=== PATIENT | male | born 1970 ===

== ENCOUNTER 2025-06-24 06:21 | Day surgery (SDC) | payer OTHER ==
[2025-06-17 13:12] VITALS: BP 131/88
[~2025-06-24] VITALS: Ht 170.2 cm; Wt 59.0 kg
[2025-06-24] MEDS ORDERED: METRONIDAZOLE/SODIUM CHLORIDE 500 MG/100 ML PIGGYBACK IV ONE (08:43)
[2025-06-24] MEDS ORDERED: CEFTRIAXONE SODIUM 2,000 MG VIAL ONE (08:43)
[2025-06-24] MEDS ORDERED: LIDOCAINE HCL 1%/EPINEPHRINE 20ML VIAL IJ ONE (10:22)
[2025-06-24] MEDS ORDERED: HEMOSTATIC MATRIX 1 KIT KIT TOP ONE (10:22)
[2025-06-24] MEDS ORDERED: DIBUCAINE 30 GM TUBE ONE (10:22)
[2025-06-24] MEDS ORDERED: POVIDONE-IODINE 118 ML BOTT TOP ONE (10:22)
[2025-06-24] MEDS ORDERED: BUPIVACAINE HCL/Mpf 0.5% 10ML VIAL ONE (10:22)
[2025-06-24] MEDS ORDERED: OXYCODONE HCL5 MG PO (12:06)
[2025-06-24] MEDS ORDERED: TAMSULOSIN HCL 0.4 MG CAP PO ONE ×2 (12:15→14:22)
== END 2025-06-24 16:20 | disposition home or self-care (01) ==
LOC: CIR.AMB 06:21
PROVIDERS: ATTEND Surgery
DX: K64.2 Third degree hemorrhoids (principal); K64.4 Residual hemorrhoidal skin tags; K62.5 Hemorrhage of anus and rectum; Z91.013 Allergy to seafood